=== PATIENT | male | born 1995 | race Caucasian/White ===

== ENCOUNTER 2018-01-27 16:29 | Emergency (ER) | payer OTHER ==
[~2018-01-27] VITALS: Ht 185.4 cm; Wt 83.9 kg
[~2018-01-27 16:29] MED LIST: ACETAMINOPHEN-1 EAC1 PO; APAP500 PO; HYDROCODONE-AP1 EAC6 PO; IBUPROFEN 800800 M1 PO; IBUPROFEN 800800 MG PO; NAPROSYN500 MG PO; NOHOMEMEDICATIONS; NORCO 5-325 TA1 EACH PO; PENICILLIN VK500 MG PO; ROBAXIN 750 MG750 M1 PO; TRAMADOL 50 MG50 MG PO
[2018-01-27] MEDS ORDERED: IBUPROFEN 600600 M1 PO (17:37)
[2018-01-27 18:30] VITALS: BP 129/80
== END 2018-01-27 18:08 | disposition home or self-care (01) ==
LOC: M.ERS 16:29
DX: M25.562 Pain in left knee (principal)

== ENCOUNTER 2018-09-12 15:28 | Emergency (ER) | payer OTHER ==
[~2018-09-12] VITALS: Ht 185.4 cm; Wt 99.8 kg
[~2018-09-12 15:28] MED LIST changes: +IBUPROFEN 600600 M1 PO
[2018-09-12] MEDS ORDERED: ROBAXIN 750 MG750 M1 PO (16:50)
[2018-09-12] MEDS ORDERED: NABUMETONE 750750 M1 PO (16:50)
[2018-09-12] MEDS ORDERED: MEDROLDOSEPACK PO (16:50)
[2018-09-12] MEDS ORDERED: NORCO 5-325 TA1 EACH PO (16:50)
[2018-09-12 17:18] VITALS: BP 133/70
== END 2018-09-12 17:19 | disposition home or self-care (01) ==
LOC: M.ERS 15:28
DX: M54.16 Radiculopathy, lumbar region (principal); M43.06 Spondylolysis, lumbar region

== ENCOUNTER 2019-11-17 04:55 | Emergency (ER) | payer OTHER ==
[~2019-11-17] VITALS: Ht 185.4 cm; Wt 109.3 kg
[~2019-11-17 04:55] MED LIST changes: +MEDROLDOSEPACK PO; +NABUMETONE 750750 M1 PO
[2019-11-17] MEDS ORDERED: ANTIBIOTIC (05:09)
[2019-11-17] MEDS ORDERED: RAYOS5 MG PO (05:09)
[2019-11-17 05:39] LABS: HEMATOCRIT 41.2 % (42.0-52.0); HEMOGLOBIN 14.1 gm/dL (14.0-18.0); MCH 30.4 pg (26.0-34.0); MCHC 34.3 g/dL (28.0-37.0); MCV 88.6 fL (80.0-100.0); MPV 8.4 fl. (7.2-11.1); RBC 4.65 mil/uL (4.50-6.00); RDW-CV 13.6 % (10.5-14.5); WBC 10.6 thou/uL (4.0-11.0)
[2019-11-17 05:50] LABS: CALCIUM 8.2 mg/dL (8.5-10.1); CREATININE 0.9 mg/dL (0.6-1.3)
[2019-11-17 05:52] LABS: POTASSIUM 2.9 mmol/L (3.5-5.1)
[2019-11-17 05:54] LABS: ALBUMIN 3.5 g/dL (3.4-5.0); TOTAL BILIRUBIN 0.1 mg/dL (<0.1-1.0); TOTAL PROTEIN 6.4 g/dL (6.4-8.2)
[2019-11-17] MEDS ORDERED: POTASSIUM20 PO (06:43)
[2019-11-17] MEDS ORDERED: ZOFRAN ODT4 MG DISSOLVE (06:43)
[2019-11-17 06:53] VITALS: BP 138/95
== END 2019-11-17 06:53 | disposition home or self-care (01) ==
LOC: M.ERS 04:55
PROVIDERS: Emergency Medicine Emergency Medical Services
DX: E87.6 Hypokalemia (principal); R51 Headache; R11.2 Nausea with vomiting, unspecified; F17.210 Nicotine dependence, cigarettes, uncomplicated; Z90.89 Acquired absence of other organs

== ENCOUNTER 2020-07-09 12:31 | Emergency (ER) | payer OTHER ==
[~2020-07-09] VITALS: Ht 185.4 cm; Wt 115.7 kg
[~2020-07-09 12:31] MED LIST changes: +ANTIBIOTIC; +POTASSIUM20 PO; +RAYOS5 MG PO; +ZOFRAN ODT4 MG DISSOLVE
[2020-07-09] MEDS ORDERED: AMOXICILLIN 50500 MG PO (13:27)
[2020-07-09] MEDS ORDERED: APAP W/CODEINE1 TA2 PO (13:27)
[2020-07-09 14:08] VITALS: BP 143/91
== END 2020-07-09 14:09 | disposition home or self-care (01) ==
LOC: M.ERS 12:31
DX: S02.5XXA Fracture of tooth (traumatic), initial encounter for closed fracture (principal); K00.7 Teething syndrome; F17.210 Nicotine dependence, cigarettes, uncomplicated; X58.XXXA Exposure to other specified factors, initial encounter; Y93.89 Activity, other specified; Y92.89 Other specified places as the place of occurrence of the external cause; Y99.8 Other external cause status

== ENCOUNTER 2020-10-08 21:02 | Emergency (ER) | payer OTHER, MEDICAID ==
[~2020-10-08] VITALS: Ht 185.4 cm; Wt 110.2 kg
[~2020-10-08 21:02] MED LIST changes: +AMOXICILLIN 50500 MG PO; +APAP W/CODEINE1 TA2 PO
[2020-10-08 21:30] LABS: HEMATOCRIT 43.8 % (42.0-52.0); HEMOGLOBIN 14.8 gm/dL (14.0-18.0); MCH 30.2 pg (26.0-34.0); MCHC 33.8 g/dL (28.0-37.0); MCV 89.3 fL (80.0-100.0); MPV 8.3 fl. (7.2-11.1); RBC 4.9 mil/uL (4.50-6.00); RDW-CV 13.2 % (10.5-14.5); WBC 9.1 thou/uL (4.0-11.0)
[2020-10-08 21:43] LABS: APTT 23.6 Seconds (25.0-31.3); PROTIME 10.4 Seconds (9.20-11.50)
[2020-10-08 21:44] LABS: CALCIUM 8.9 mg/dL (8.5-10.1); CREATININE 1.2 mg/dL (0.6-1.3); POTASSIUM 3.6 mmol/L (3.5-5.1)
[2020-10-08 21:45] LABS: ALBUMIN 3.9 g/dL (3.4-5.0); TOTAL BILIRUBIN 0.2 mg/dL (<0.1-1.0); TOTAL PROTEIN 7.2 g/dL (6.4-8.2)
[2020-10-08 21:52] LABS: URINE BILIRUBIN NEGATIVE (Negative); URINE BLOOD NEGATIVE (Negative); URINE CLARITY CLEAR; URINE COLOR YELLOW; URINE GLUCOSE-RANDOM NEGATIVE (Negative); URINE KETONES NEGATIVE (Negative); URINE LEUKOCYTES NEGATIVE (Negative); URINE NITRITE NEGATIVE (Negative); URINE PROTEIN 1+ (Negative); URINE SPECIFIC GRAVITY >= 1.030 (1.005-1.030); URINE UROBILINOGEN 0.2 E.U./dl (0.2-1.0)
[2020-10-08] MEDS ORDERED: FLEXERIL (21:59)
[2020-10-08] MEDS ORDERED: [UNRECOGNIZED DRUG - REMARK] (22:00)
[2020-10-08 22:29] LABS: AMP/METHAMP Negative (Negative); BARBITURATES Negative (Negative); BENZODIAZEPINES Negative (Negative); COCAINE Negative (Negative); METHADONE Negative (Negative); OPIATES Negative (Negative); PCP Negative (Negative); THC Negative (Negative)
[2020-10-08 23:05] VITALS: BP 163/97
--- NOTE | 2020-10-09 12:48 | EKG ---
[place] [address] ELECTROCARDIOGRAM REPORT Name: RADHA VILLANUEVA Room: [facility]#: [id number] Admission: 10/08/20 Attend Phys: Discharge: 10/08/20 Date of : [birth year] Date of Service: 10/08/202137 Report #: [id number] THIS REPORT FOR: //name// 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1995 Requested By: Jasmin Lujan Order Number: [id number] MD: Jason Schwab Measurements Intervals [place] Rate: 107 P: 62 [place]: 173 QRS: 59 QRSD: 94 T: -8 QT: 297 QTc: 397 Interpretive Statements Sinus tachycardia Left atrial enlargement Borderline T wave abnormalities No previous ECG available for comparison Electronically Signed On 10-09-2020 12:48:43 [employer]INDER[employer] OPERATOR by Jason Schwab [email or web address] <ELECTRONICALLY SIGNED> By: Jason Schwab MD, [facility] 10/09/20 1248 37 37 Jason Schwab MD, FACC /EPI
== END 2020-10-08 23:05 | disposition home or self-care (01) ==
LOC: M.ERS 21:02
PROVIDERS: Personal Emergency Response Attendant
DX: R55 Syncope and collapse (principal); F17.210 Nicotine dependence, cigarettes, uncomplicated; Z79.899 Other long term (current) drug therapy

== ENCOUNTER 2020-12-19 14:08 | Emergency (ER) | payer OTHER, MEDICAID ==
[~2020-12-19] VITALS: Ht 185.4 cm; Wt 90.7 kg
[~2020-12-19 14:08] MED LIST changes: +FLEXERIL; +[UNRECOGNIZED DRUG - REMARK]
[2020-12-19] MEDS ORDERED: IBUPROFEN 600600 M1 PO (16:08)
[2020-12-19] MEDS ORDERED: HYDROCODON-ACE1 EAC7 PO (16:08)
[2020-12-19 16:21] VITALS: BP 170/100
== END 2020-12-19 16:21 | disposition home or self-care (01) ==
LOC: M.ERS 14:08
DX: M25.562 Pain in left knee (principal); F17.210 Nicotine dependence, cigarettes, uncomplicated

== ENCOUNTER 2021-02-09 11:42 | Emergency (ER) | payer OTHER, MEDICAID ==
[~2021-02-09] VITALS: Ht 185.4 cm; Wt 109.8 kg
[~2021-02-09 11:42] MED LIST changes: +HYDROCODON-ACE1 EAC7 PO
[2021-02-09] MEDS ORDERED: IBUPROFEN 800800 M1 PO (12:05)
[2021-02-09] MEDS ORDERED: ZANAFLEX4 MG PO (12:05)
[2021-02-09 12:11] VITALS: BP 137/80
== END 2021-02-09 12:12 | disposition home or self-care (01) ==
LOC: M.ERS 11:42
DX: M79.602 Pain in left arm (principal); R60.9 Edema, unspecified; F17.210 Nicotine dependence, cigarettes, uncomplicated

== ENCOUNTER 2021-02-27 19:26 | Emergency (ER) | payer OTHER, MEDICAID ==
[~2021-02-27] VITALS: Ht 182.9 cm; Wt 109.8 kg
[~2021-02-27 19:26] MED LIST changes: +ZANAFLEX4 MG PO
[2021-02-27 20:42] LABS: ABSOLUTE BASOPHILS 0.1 thou/uL (0.0-0.2); ABSOLUTE EOSINOPHILS 0.1 thou/uL (0.0-0.7); ABSOLUTE MONOCYTES 0.7 thou/uL (0.0-1.2); ABSOLUTE NEUTROPHILS 5.3 thou/uL (1.6-8.1); BASOPHILS 0.7 %; EOSINOPHILS 1.3 %; HEMATOCRIT 45.1 % (42.0-52.0); HEMOGLOBIN 14.8 gm/dL (14.0-18.0); MCH 29.4 pg (26.0-34.0); MCHC 32.9 g/dL (28.0-37.0); MCV 89.2 fL (80.0-100.0); MONOCYTES 7.2 %; MPV 8.4 fl. (7.2-11.1); NUCLEATED RBCS 0 /100WBC; PLATELET COUNT* 222 thou/uL (150-400); POLYS 57.8 %; RBC 5.05 mil/uL (4.50-6.00); RDW-CV 13.3 % (10.5-14.5); WBC 9.2 thou/uL (4.0-11.0)
[2021-02-27 20:53] LABS: CALCIUM 8.8 mg/dL (8.5-10.1); POTASSIUM 4.1 mmol/L (3.5-5.1)
[2021-02-27 20:57] LABS: ALBUMIN 3.9 g/dL (3.4-5.0); TOTAL BILIRUBIN 0.3 mg/dL (<0.1-1.0); TOTAL PROTEIN 7.5 g/dL (6.4-8.2)
[2021-02-27 21:09] LABS: AMP/METHAMP Negative (Negative); BARBITURATES Negative (Negative); BENZODIAZEPINES Negative (Negative); COCAINE Negative (Negative); METHADONE Negative (Negative); OPIATES Negative (Negative); PCP Negative (Negative); THC Negative (Negative)
[2021-02-27 21:46] LABS: URINE BILIRUBIN NEGATIVE (Negative); URINE BLOOD NEGATIVE (Negative); URINE CLARITY CLEAR; URINE COLOR YELLOW; URINE GLUCOSE-RANDOM NEGATIVE (Negative); URINE KETONES NEGATIVE (Negative); URINE LEUKOCYTES-REFLEX NEGATIVE (Negative); URINE NITRITE-REFLEX NEGATIVE (Negative); URINE PROTEIN NEGATIVE (Negative); URINE UROBILINOGEN 0.2 E.U./dl (0.2-1.0)
[2021-02-27 22:47] VITALS: BP 121/65
--- NOTE | 2021-03-01 09:42 | EKG ---
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[facility] : 1995 Requested By: Lakeshia Wen Order Number: [id number] MD: Ike Gutierrez Measurements Intervals [place] Rate: 88 P: 54 [place]: 170 QRS: 50 QRSD: 95 T: 8 QT: 335 QTc: 406 Interpretive Statements Sinus rhythm Compared to ECG 10/08/2020 21:38:16 Sinus tachycardia no longer present Atrial abnormality no longer present Electronically Signed On 03-01-2021 9:42:12 CDT by Ike Gutierrez [email or web address] <ELECTRONICALLY SIGNED> By: Ike Gutierrez MD, [facility] 03/01/2142 31 31 Ike Gutierrez MD, [facility] /EPI
== END 2021-02-27 22:49 | disposition home or self-care (01) ==
LOC: M.ERS 19:26
PROVIDERS: Emergency Medicine
DX: R07.89 Other chest pain (principal); F17.210 Nicotine dependence, cigarettes, uncomplicated; Z79.899 Other long term (current) drug therapy

== ENCOUNTER 2021-04-02 11:03 | Emergency (ER) | payer OTHER, MEDICAID ==
[~2021-04-02] VITALS: Ht 182.9 cm; Wt 109.8 kg
[2021-04-02] MEDS ORDERED: OCUFLOX5 ML OPHTHALMIC (11:36)
[2021-04-02] MEDS ORDERED: CEPHALEXIN500 MG PO (11:36)
[2021-04-02 12:00] VITALS: BP 133/81
== END 2021-04-02 12:01 | disposition home or self-care (01) ==
LOC: M.ERS 11:03
DX: S01.312A Laceration without foreign body of left ear, initial encounter (principal); H66.92 Otitis media, unspecified, left ear; F17.210 Nicotine dependence, cigarettes, uncomplicated; X58.XXXA Exposure to other specified factors, initial encounter; Y93.89 Activity, other specified; Y92.89 Other specified places as the place of occurrence of the external cause; Y99.9 Unspecified external cause status

== ENCOUNTER 2021-04-04 13:56 | Emergency (ER) | payer OTHER, MEDICAID ==
[~2021-04-04] VITALS: Ht 182.9 cm; Wt 109.8 kg
[~2021-04-04 13:56] MED LIST changes: +CEPHALEXIN500 MG PO; +OCUFLOX5 ML OPHTHALMIC
[2021-04-04 14:37] LABS: ABSOLUTE EOSINOPHILS 0.2 thou/uL (0.0-0.7); ABSOLUTE LYMPHOCYTES 1.7 thou/uL (0.8-5.3); ABSOLUTE MONOCYTES 0.8 thou/uL (0.0-1.2); ABSOLUTE NEUTROPHILS 2.8 thou/uL (1.6-8.1); BASOPHILS 0.8 %; EOSINOPHILS 4.3 %; HEMATOCRIT 42.4 % (42.0-52.0); HEMOGLOBIN 14.4 gm/dL (14.0-18.0); LYMPHOCYTES 30.8 %; MCH 29.8 pg (26.0-34.0); MCV 87.6 fL (80.0-100.0); MONOCYTES 14.4 %; MPV 7.7 fl. (7.2-11.1); NUCLEATED RBCS 0 /100WBC; PLATELET COUNT* 235 thou/uL (150-400); POLYS 49.7 %; RBC 4.84 mil/uL (4.50-6.00); RDW-CV 13.3 % (10.5-14.5); WBC 5.6 thou/uL (4.0-11.0)
[2021-04-04 14:47] LABS: CALCIUM 8.7 mg/dL (8.5-10.1); CREATININE 0.9 mg/dL (0.6-1.3); POTASSIUM 3.6 mmol/L (3.5-5.1)
[2021-04-04 14:50] LABS: ALBUMIN 3.6 g/dL (3.4-5.0); TOTAL BILIRUBIN 0.5 mg/dL (<0.1-1.0); TOTAL PROTEIN 7.1 g/dL (6.4-8.2)
[2021-04-04] MEDS ORDERED: FLAGYL500 M1 PO (15:48)
[2021-04-04] MEDS ORDERED: CIPRO500 M1 PO (15:48)
[2021-04-04] MEDS ORDERED: APAP W/CODEINE1 TA2 PO ×3 (15:48→15:57)
[2021-04-04] MEDS ORDERED: PREDNISONE 20 M20 MG PO (15:48)
[2021-04-04 16:10] VITALS: BP 134/93
== END 2021-04-04 16:10 | disposition home or self-care (01) ==
LOC: M.ERS 13:56
PROVIDERS: Physician Assistant
DX: K52.9 Noninfective gastroenteritis and colitis, unspecified (principal); F17.210 Nicotine dependence, cigarettes, uncomplicated

== ENCOUNTER 2021-09-10 17:43 | Emergency (ER) | payer OTHER, MEDICAID ==
[~2021-09-10] VITALS: Ht 182.9 cm; Wt 109.8 kg
[~2021-09-10 17:43] MED LIST changes: +CIPRO500 M1 PO; +FLAGYL500 M1 PO; +PREDNISONE 20 M20 MG PO
[2021-09-10 21:14] VITALS: BP 142/88
== END 2021-09-10 21:16 | disposition home or self-care (01) ==
LOC: M.ERS 17:43
DX: S62.396A Other fracture of fifth metacarpal bone, right hand, initial encounter for closed fracture (principal); F17.210 Nicotine dependence, cigarettes, uncomplicated; Z90.89 Acquired absence of other organs; W01.0XXA Fall on same level from slipping, tripping and stumbling without subsequent striking against object, initial encounter; Y93.89 Activity, other specified; Y92.89 Other specified places as the place of occurrence of the external cause; Y99.8 Other external cause status

== ENCOUNTER 2022-01-08 18:29 | Emergency (ER) | payer OTHER, MEDICAID ==
[~2022-01-08] VITALS: Ht 182.9 cm; Wt 110.2 kg
[2022-01-08] MEDS ORDERED: APAP W/CODEINE1 TA2 PO (21:04)
[2022-01-08] MEDS ORDERED: MEDROLDOSEPACK PO (21:04)
[2022-01-08 21:12] VITALS: BP 143/100
== END 2022-01-08 21:12 | disposition home or self-care (01) ==
LOC: M.ERS 18:29
DX: S16.1XXA Strain of muscle, fascia and tendon at neck level, initial encounter (principal); M54.59 Other low back pain; F17.210 Nicotine dependence, cigarettes, uncomplicated; Z90.89 Acquired absence of other organs; X58.XXXA Exposure to other specified factors, initial encounter; Y93.89 Activity, other specified; Y92.89 Other specified places as the place of occurrence of the external cause; Y99.8 Other external cause status